=== PATIENT | male | born 1970 | race American Indian/Alaskan Native ===

== ENCOUNTER 2018-04-25 11:48 | Outpatient (CLI) | payer BC ==
[2018-04-25 12:19] LABS: Blood Urea Nitrogen 9 mg/dL (9-20)
--- NOTE | 2018-04-25 13:50 | Cat Scan Report ---
CT CHEST WITH CONTRAST: HISTORY: Abnormal chest x-ray. COMPARISON: none. TECHNIQUE: Helical CT in 1.25mm intervals following IV contrast. Sagittal and coronal reformatted images. FINDINGS: Thyroid gland: Normal. Tracheobronchial tree: Normal. Esophagus: Normal. Heart: Normal. Pericardium: Normal. Mediastinum: Calcified right hilar lymph nodes are noted. No lymphadenopathy. Lung Gustafson: No underlying parenchymal lung disease. 5 mm calcified granuloma in the right upper lobe is noted. No evidence for pneumonia or interstitial lung disease. Pleural Spaces: Normal. Musculoskeletal: Normal. IMPRESSION: Essentially unremarkable CT chest with contrast. Chronic granulomatous disease findings are noted. No acute processes identified in the chest.
== END 2018-04-25 11:49 | disposition home or self-care (01) ==
LOC: CT 11:48
PROVIDERS: ATTEND Family Medicine
DX: L92.9 Granulomatous disorder of the skin and subcutaneous tissue, unspecified (principal)
CPT/HCPCS: 36415; 71260; 82565; 84520; Q9967

== ENCOUNTER 2018-11-28 16:04 | Outpatient (CLI) | payer BC ==
--- NOTE | 2018-11-28 19:58 | Magnetic Resonance Report ---
PROCEDURE: MR LE JOINT LT WO CON HISTORY: PAIN IN LEFT KNEE FINDINGS: MRI of the left knee was performed using axial fat saturated proton density, coronal T1, co clemencia fat saturated proton density, sagittal proton density, sagittal fat saturated T2 and sagittal T 2*gradient echo images. Images suffer from low [id number] ratio. These images demonstrate in the medial compartment, tear of the central insertion of the posterior ho rn of the medial meniscus. Additionally there appears to be a horizontal tear of the medial meniscal body. The anterior horn appears intact. There is articular cartilage loss consistent with osteoarthri tis. There is considerable bone edema within the medial femoral condyle, consistent with bone contusi on. In the lateral compartment, the anterior and posterior horns of the lateral meniscus appear intact. T he articular cartilage appears intact. The subchondral marrow is within normal limits. In the patellofemoral compartment, the quadriceps and patellar tendons appear intact. The articular c artilage appears intact. There is a knee joint effusion without intra-articular loose body. The anterior cruciate ligament appears intact but there is some increased T2 signal intensity within the ACL consistent with sprain. The, posterior cruciate and lateral collateral ligaments appear intac t. There appears to be a tear at the junction of the medial collateral ligament and the medial patell ar retinaculum. IMPRESSION: Tear of central insertion of posterior horn of medial meniscus Horizontal tear of medial meniscal body Bone contusion of medial femoral condyle Sprain of ACL Tear of junction of MCL and medial patellar retinaculum This document is electronically signed by Silverio Rajan MD., Nov 28 2018 07:57:23 PM ET
== END 2018-11-28 16:05 | disposition home or self-care (01) ==
LOC: MRI 16:04
PROVIDERS: ATTEND Orthopaedic Surgery
DX: S83.242A Other tear of medial meniscus, current injury, left knee, initial encounter (principal); I10 Essential (primary) hypertension; X58.XXXA Exposure to other specified factors, initial encounter; Y93.89 Activity, other specified; Y92.89 Other specified places as the place of occurrence of the external cause; Y99.8 Other external cause status
CPT/HCPCS: 73721

== ENCOUNTER 2018-12-20 09:45 | Day surgery (SDC) | payer BC ==
[~2018-12-20 09:45] MED LIST: ANCEF/STERILE WATER 2 GM/20 ML IV NR
[2018-12-20] MEDS ORDERED: VERSED IV NR (11:35)
[2018-12-20] MEDS ORDERED: LACTATED RINGERS 1,000 ML IV SCH (11:35)
[2018-12-20] MEDS ORDERED: SUBLIMAZE ONE ×2 (13:02→13:53)
[2018-12-20] MEDS ORDERED: XYLOCAINE CARDIAC IV ONE (13:02)
[2018-12-20] MEDS ORDERED: DIPRIVAN 10 MG/ML IV ONE ×2 (13:03→13:24)
[2018-12-20] MEDS ORDERED: DEPO-Medrol ONE (13:49)
[2018-12-20] MEDS ORDERED: MARCAINE-EPI 0.5%-1:200,000 INFILTRATI ONE (13:49)
[2018-12-20] MEDS ORDERED: ZOFRAN ONE ×2 (14:02→15:27)
[2018-12-20] MEDS ORDERED: MARCAINE-EPI/PF 0.5%-1:200,000 IJ ONE (14:15)
[2018-12-20] MEDS ORDERED: DEPO-Medrol INTRA-ARTI ONE (14:15)
[2018-12-20] MEDS ORDERED: DILAUDID IV PRN (14:19)
--- NOTE | 2018-12-20 14:19 | Anesthesia Day of Surgery ---
Anesthesia Day of Surgery - Day of Surgery Patient Examined: Yes Patient H&P Reviewed: Yes Patient is NPO: Yes
--- NOTE | 2018-12-20 14:19 | Anesthesia Consultation ---
Anesthesia Consult and Med Hx Date of service: 12/20/18 - Airway Anesthetic Teeth Evaluation: Good ROM Head & Neck: Adequate Mental/Hyoid Distance: Adequate Mallampati Class: Class III Intubation Access Assessment: Possibly Difficult - Pulmonary Exam CTA: Yes - Cardiac Exam Cardiac Exam: RRR - Pre-Operative Health Status ASA Pre-Surgery Classification: ASA3 Proposed Anesthetic Plan: General - Pulmonary Hx Smoking: No Hx Respiratory Symptoms: No Hx Sleep Apnea: No (CORA PRE SCREEN HIGH RISK) - Cardiovascular System Hx Hypertension: Yes Hx Heart Attack/AMI: No Hx Percutaneous Transluminal Coronary Angioplasty (PTCA): No Hx Cardia Arrhythmia: No - Central Nervous System CVA: No Hx Psychiatric Problems: No - Gastrointestinal Hx Gastroesophageal Reflux Disease: No - Endocrine Hx Renal Disease: No Hx Liver Disease: No Hx Insulin Dependent Diabetes: No Hx Non-Insulin Dependent Diabetes: No Hx Thyroid Disease: No - Other Systems Hx Obesity: Yes - Additional Comments Anesthesia Medical History Comments: No prior GA. Patient unsure of family anesthetic history.
[2018-12-20] MEDS ORDERED: NEO SYNEPHRINE/NS Syringe(OR USE) IV ONE (14:35)
[2018-12-20] MEDS ORDERED: TORADOL ONE (14:35)
--- NOTE | 2018-12-20 14:37 | Procedure Note ---
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 A timeout procedure was done to identify the patient and the correct operative site. The leg was exsanguinated by inflation of the pneumatic tourniquet to 300 mmHg routine arthroscopic portals were made following introduction of the arthroscope insufflation of the knee joint with saline solution examination revealed these findings patient was noted to have a grade 3 chondromalacia of the distal femoral condyle medially along with some grade 2 changes on the corresponding tibial articular surface the medial meniscus appeared to be intact and using arthroscopic probe there was no obvious tear noted next the arthroscope was placed in the intraconal notch the anterior cruciate ligament was seen and was intact The knee was placed in a figure 4 position the lateral meniscus was seen and probed and appeared to be intact from posterior to anterior with very little in the way of articular pathology following this the arthroscopic shaver was placed in the joint and the medial femoral condyle was debrided back to healthier. Cartilage tissue here was taken to remove as much degenerative cartilage as possible without interfering with the mechanics of the knee joint following a debridement and irrigation a second look was performed next the arthroscope was removed and the stab wounds were repaired. Marcaine and Depo- Medrol mixture was then injected to postop drops were applied the patient tolerated the procedure of removal, palpitations he was sent to postanesthesia recovery in stable condition Anesthesia: MAC Surgeon: LUIS CARLOS VELEZ Requirements Analyst: JOSHUA MCNAIR Estimated blood loss: minimal Pathology: none Condition: stable Disposition: PACU
[2018-12-20] MEDS ORDERED: PERCOCET 5/325 PO PRN (15:14)
[2018-12-20] MEDS ORDERED: ZOFRAN IV ONE (15:29)
[2018-12-20 16:49] VITALS: BP 110/60
--- NOTE | 2018-12-20 17:22 | Post Anesthesia Evaluation ---
- Post Anesthesia Evaluation Patient Participated: Yes Airway Patent: Yes Stable Respiratory Function: Yes Nausea/Vomiting: No Temp > 96.8F: Yes Pain Manageable: Yes Adequeate Hydration: Yes Anesthesia Complications: No
== END 2018-12-20 16:40 | disposition home or self-care (01) ==
LOC: OR 09:45
PROVIDERS: ATTEND Orthopaedic Surgery
DX: M94.262 Chondromalacia, left knee (principal); M23.92 Unspecified internal derangement of left knee; I10 Essential (primary) hypertension; E66.9 Obesity, unspecified; H40.9 Unspecified glaucoma; G47.30 Sleep apnea, unspecified; Z68.42 Body mass index [BMI] 45.0-49.9, adult; Z79.899 Other long term (current) drug therapy
CPT/HCPCS: 29877; 36415; 84132; J0690; J1040; J1885; J2001; J2250; J2370; J2405; J2704; J3010; J7120; J1030

== ENCOUNTER 2019-09-13 11:00 | Outpatient (CLI) | payer BC | END 2019-09-13 11:01 | disposition home or self-care (01) | LOC: SLR 11:00 | PROVIDERS: ATTEND Otolaryngology | DX: G47.33 Obstructive sleep apnea (adult) (pediatric) (principal); R40.0 Somnolence; E66.9 Obesity, unspecified | CPT/HCPCS: 95810 ==

== ENCOUNTER 2019-09-24 11:00 | Outpatient (CLI) | payer BC | END 2019-09-24 11:01 | disposition home or self-care (01) | LOC: SLR 11:00 | PROVIDERS: ATTEND Otolaryngology | DX: G47.33 Obstructive sleep apnea (adult) (pediatric) (principal); R40.0 Somnolence | CPT/HCPCS: 95811 ==

== ENCOUNTER 2020-04-03 08:05 | Outpatient (CLI) | payer BC ==
[2020-04-03 08:49] LABS: Basophils # (Auto) 0.1 K/mm3 (0.0-0.1); Basophils % (Auto) 0.9 % (0.0-1.8); Eosinophils % (Auto) 0.7 % (0.0-4.3); Hematocrit 41.5 % (35.5-45.6); Hemoglobin 13.4 gm/dl (11.8-15.2); Lymphocytes # (Auto) 2.5 K/mm3 (1.2-5.4); Lymphocytes % (Auto) 43.8 % (13.4-35.0); Mean Corpuscular HGB Conc 32 % (32-34); Mean Corpuscular Volume 77 fl (84-94); Monocytes # (Auto) 0.4 K/mm3 (0.0-0.8); Monocytes % (Auto) 6.6 % (0.0-7.3); Platelet Count 264 K/mm3 (140-440); Red Blood Count 5.37 M/mm3 (3.65-5.03); Red Cell Distribution Width 14.4 % (13.2-15.2)
[2020-04-03 09:16] LABS: Alanine Aminotransferase 22 units/L (7-56); Albumin 4.3 g/dL (3.9-5); BUN/Creatinine Ratio 13; Blood Urea Nitrogen 10 mg/dL (9-20); Calcium 9.7 mg/dL (8.4-10.2); Chol/HDL Ratio 6.05 %; HDL Cholesterol 37 mg/dL (40-59); Hemolysis Index 5; LDL Cholesterol,Direct 147 mg/dL (50-130)
== END 2020-04-03 08:06 | disposition home or self-care (01) ==
LOC: LAB 08:05
PROVIDERS: ATTEND Internal Medicine
DX: Z00.00 Encounter for general adult medical examination without abnormal findings (principal); I10 Essential (primary) hypertension; Z13.1 Encounter for screening for diabetes mellitus; Z13.220 Encounter for screening for lipoid disorders; Z13.21 Encounter for screening for nutritional disorder
CPT/HCPCS: 36415; 80053; 80061; 82306; 82607; 83036; 84443; 85025; 86592; 86689; 87591

== ENCOUNTER 2021-01-06 19:52 | Emergency (ER) | payer BC ==
[2021-01-06 20:38] VITALS: BP 147/73
--- NOTE | 2021-01-06 20:41 | Emergency Department Report ---
ED Recheck HPI - General Chief Complaint: Medical Clearance Stated Complaint: MED REFILL Time Seen by Provider: 01/06/21 20:38 Source: patient Mode of arrival: Ambulatory Limitations: No Limitations - History of Present Illness Initial Comments: 50-year-old male nontoxic, well nourished in appearance, no acute signs of distress presents to the ED with c/o of medication refill. Patient stated he takes Norvasc 5 mg daily. Patient stated last dose was today. Patient otherwise denies any complaints or symptoms. Denies any chest pain, shortness of breath, fever, chills, headache, stiff neck, numbness tingling. Denies any allergies. MD Complaint: medication refill request Returns Today for: request for prescription Symptoms Since Prior Visit: no new symptoms Associated Symptoms: none. denies: fever, chills, chest pain, shortness of breath, rash, malaise, nasuea, abdominal pain - Related Data Home Medications Medication Instructions Recorded Confirmed Last Taken Lisinopril/Hydrochlorothiazide 1 each PO DAILY 12/14/18 12/20/18 12/19/18 [Zestoretic 10-12.5 mg Tablet] Previous Rx's Medication Instructions Recorded Last Taken Type oxyCODONE /ACETAMINOPHEN [Percocet 1 tab PO Q4HR #20 tab 12/20/18 Unknown Rx 5/325] Amlodipine Besylate [Norvasc] 5 mg PO DAILY #30 tablet 01/06/21 Unknown Rx Allergies Allergy/AdvReac Type Severity Reaction Status Date / Time No Known Allergies Allergy Verified 12/14/18 09:53 ED Review of Systems ROS: Stated complaint: MED REFILL Other details as noted in HPI Comment: All other systems reviewed and negative Constitutional: denies: chills, fever Eyes: denies: eye pain, eye discharge, vision change ENT: denies: ear pain, throat pain Respiratory: denies: cough, shortness of breath, wheezing Cardiovascular: denies: chest pain, palpitations Endocrine: no symptoms reported Gastrointestinal: denies: abdominal pain, nausea, diarrhea Genitourinary: denies: urgency, dysuria Musculoskeletal: denies: back pain, joint swelling, arthralgia Skin: denies: rash, lesions Neurological: denies: headache, weakness, paresthesias Psychiatric: denies: anxiety, depression Hematological/Lymphatic: denies: easy bleeding, easy bruising ED Past Medical Hx - Past Medical History Previous Medical History?: Yes Hx Hypertension: Yes Hx Heart Attack/AMI: No Hx Liver Disease: No Hx Renal Disease: No Hx Tuberculosis: Yes (POSITIVE SKIN TEST,TOOK [place] , NEG CXR 2008) Hx HIV: No - Surgical History Past Surgical History?: No - Social History Smoking Status: Never Smoker - Medications Home Medications: Home Medications Medication Instructions Recorded Confirmed Last Taken Type Lisinopril/Hydrochlorothiazide 1 each PO DAILY 12/14/18 12/20/18 12/19/18 History [Zestoretic 10-12.5 mg Tablet] oxyCODONE /ACETAMINOPHEN [Percocet 1 tab PO Q4HR #20 tab 12/20/18 Unknown Rx 5/325] Amlodipine Besylate [Norvasc] 5 mg PO DAILY #30 tablet 01/06/21 Unknown Rx ED Physical Exam - General Limitations: No Limitations General appearance: alert, in no apparent distress - Head Head exam: Present: atraumatic, normocephalic - Eye Eye exam: Present: normal appearance - Neck Neck exam: Present: normal inspection, full ROM. Absent: lymphadenopathy - Respiratory Respiratory exam: Absent: respiratory distress - Cardiovascular Cardiovascular Exam: Present: regular rate - Extremities Exam Extremities exam: Present: full ROM - Back Exam Back exam: Present: full ROM - Neurological Exam Neurological exam: Present: alert, oriented X3, normal gait - Psychiatric Psychiatric exam: Present: normal affect, normal mood - Skin Skin exam: Present: warm, dry, intact, normal color. Absent: rash ED Course Vital Signs 01/06/21 20:36 Temperature 98.7 F Pulse Rate 89 Respiratory 16 Rate Blood Pressure 147/73 O2 Sat by Pulse 98 Oximetry - Reevaluation(s) Reevaluation #1: 01/06/21 20:39 Patient is speaking in full sentences with no signs of distress noted. ED Recheck MDM - Medical Decision Making Patient presents with medication refill. Patient is stable and was examined by me. Patient does have empty bottle of amlodipine 5 mg daily which he takes daily. Patient sees Dr. Nuñez which was not able to follow-up with him due to no availabilities. Patient otherwise denies any symptoms or complaints. Patient was instructed to follow-up with a primary care doctor in 3-5 days or if symptoms worsen and continue return to emergency room as soon as possible. At time of discharge, the patient does not seem toxic or ill in appearance. No acute signs of distress noted. Patient agrees to discharge treatment plan of care. No further questions noted by the patient. Critical care attestation.: If time is entered above; I have spent that time in minutes in the direct care of this critically ill patient, excluding procedure time. ED Disposition Clinical Impression: Medication refill Disposition: DC- TO HOME OR SELFCARE Is pt being admited?: No Does the pt Need Aspirin: No Condition: Stable Additional Instructions: Follow-up with a primary care doctor in 3-5 days or if symptoms worsen and continue return to emergency room as soon as possible. Prescriptions: Amlodipine Besylate [Norvasc] 5 mg PO DAILY #30 tablet Referrals: PRIMARY MD KAM [Referring] - 3-5 Days JESSE NUÑEZ MD [Staff Physician] - 3-5 Days Time of Disposition: 20:41
== END 2021-01-06 20:54 | disposition home or self-care (01) ==
LOC: ED 19:52
DX: I10 Essential (primary) hypertension (principal); Z76.0 Encounter for issue of repeat prescription; Z79.899 Other long term (current) drug therapy
CPT/HCPCS: 99281

== ENCOUNTER 2021-05-18 13:20 | Outpatient (CLI) | payer BC ==
--- NOTE | 2021-05-18 15:02 | XRay Report ---
LEFT KNEE 2 VIEWS INDICATION: PAIN IN LEFT KNEE. COMPARISON: None. IMPRESSION: No acute osseous or soft tissue abnormality. There is moderate medial compartment sonja nt space narrowing. Mild tibial spine and retropatellar spurring is identified. No joint effusion is appreciated. Signer Name: Sean Pollock Jr, MD Signed: 05/18/2021 2:57 PM Workstation Name: [id number]
== END 2021-05-18 13:21 | disposition home or self-care (01) ==
LOC: XRAY 13:20
PROVIDERS: ATTEND Orthopaedic Surgery
DX: M17.12 Unilateral primary osteoarthritis, left knee (principal)

== ENCOUNTER 2021-11-02 00:20 | Emergency (ER) | payer BC ==
--- NOTE | 2021-11-02 02:05 | Emergency Department Report ---
ED Extremity Problem HPI - General Chief complaint: Extremity Injury, Lower Stated complaint: RT LEG PAIN Source: patient Mode of arrival: Ambulatory Limitations: No Limitations - History of Present Illness Initial comments: Patient is a 51-year-old -[place] male with a history of hypertension who presents to the ED with complaint of acute onset persistent nontraumatic posterior right lower leg pain for the last 3 weeks. Patient states that the pain is worse with movement and improves with rest. Patient denies chest pain, shortness of breath, fever, chills, traumatic injury, heavy lifting, nausea and vomiting, low back pain or hip pain, numbness and tingling or weakness of lower extremities bilaterally. MD Complaint: extremity pain (right calf pain) -: Sudden, week(s) (3) Location: right, lower extremity (right calf) History of Same: No -: Yes arthralgia Radiation: distal Severity scale (0 -10): 8 Quality: aching, sharp Consistency: constant Improves with: nothing Worsens with: weight bearing, walking, palpation Associated Symptoms: denies other symptoms - Related Data Home Medications Medication Instructions Recorded Confirmed Last Taken Lisinopril/Hydrochlorothiazide 1 each PO DAILY 12/14/18 12/20/18 12/19/18 [Zestoretic 10-12.5 mg Tablet] Previous Rx's Medication Instructions Recorded Last Taken Type oxyCODONE /ACETAMINOPHEN [Percocet 1 tab PO Q4HR #20 tab 12/20/18 Unknown Rx 5/325] Amlodipine Besylate [Norvasc] 5 mg PO DAILY #30 tablet 01/06/21 Unknown Rx Naproxen 500 mg PO Q12H PRN #30 tab 11/02/21 Unknown Rx Allergies Allergy/AdvReac Type Severity Reaction Status Date / Time No Known Allergies Allergy Verified 12/14/18 09:53 ED Review of Systems ROS: Stated complaint: RT LEG PAIN Other details as noted in HPI Constitutional: denies: chills, fever Eyes: denies: eye pain, eye discharge, vision change ENT: denies: ear pain, throat pain Respiratory: denies: cough, shortness of breath, wheezing Cardiovascular: denies: chest pain, palpitations Endocrine: no symptoms reported Gastrointestinal: denies: abdominal pain, nausea, vomiting, diarrhea Genitourinary: denies: urgency, dysuria Musculoskeletal: arthralgia (posterior right lower leg pain). denies: back pain, joint swelling Skin: denies: rash, lesions Neurological: denies: headache, weakness, paresthesias Psychiatric: denies: anxiety, depression Hematological/Lymphatic: denies: easy bleeding, easy bruising ED Past Medical Hx - Past Medical History Hx Hypertension: Yes Hx Heart Attack/AMI: No Hx Liver Disease: No Hx Renal Disease: No Hx Tuberculosis: Yes (POSITIVE SKIN TEST,TOOK [place] , NEG CXR 2008) Hx HIV: No - Social History Smoking Status: Never Smoker - Medications Home Medications: Home Medications Medication Instructions Recorded Confirmed Last Taken Type Lisinopril/Hydrochlorothiazide 1 each PO DAILY 12/14/18 12/20/18 12/19/18 History [Zestoretic 10-12.5 mg Tablet] oxyCODONE /ACETAMINOPHEN [Percocet 1 tab PO Q4HR #20 tab 12/20/18 Unknown Rx 5/325] Amlodipine Besylate [Norvasc] 5 mg PO DAILY #30 tablet 01/06/21 Unknown Rx Naproxen 500 mg PO Q12H PRN #30 tab 11/02/21 Unknown Rx ED Physical Exam - General Limitations: No Limitations General appearance: alert, in no apparent distress - Head Head exam: Present: atraumatic, normocephalic, normal inspection - Eye Eye exam: Present: normal appearance, PERRL, EOMI Pupils: Present: normal accommodation - ENT ENT exam: Present: normal exam, normal orophraynx, mucous membranes moist, TM's normal bilaterally, normal external ear exam - Neck Neck exam: Present: normal inspection, full ROM. Absent: tenderness - Respiratory Respiratory exam: Present: normal lung sounds bilaterally. Absent: respiratory distress, wheezes, chest wall tenderness, accessory muscle use, decreased breath sounds - Cardiovascular Cardiovascular Exam: Present: regular rate, normal rhythm, normal heart sounds. Absent: systolic murmur, diastolic murmur, rubs, gallop - GI/Abdominal GI/Abdominal exam: Present: soft, normal bowel sounds. Absent: distended, tenderness, guarding, hyperactive bowel sounds, hypoactive bowel sounds, organomegaly, mass - Extremities Exam Extremities exam: Present: normal inspection, full ROM, tenderness (Palpable posterior right calf tenderness), normal capillary refill. Absent: pedal edema, joint swelling, calf tenderness - Back Exam Back exam: Present: normal inspection, full ROM. Absent: tenderness, CVA tenderness (R), CVA tenderness (L), muscle spasm, paraspinal tenderness, vertebral tenderness - Neurological Exam Neurological exam: Present: alert, oriented X3, CN II-XII intact, normal gait, reflexes normal - Psychiatric Psychiatric exam: Present: normal affect, normal mood - Skin Skin exam: Present: warm, dry, intact, normal color. Absent: rash ED Course Vital Signs 11/02/21 00:27 Temperature 98.3 F Pulse Rate 83 Respiratory 16 Rate Blood Pressure 136/92 O2 Sat by Pulse 95 Oximetry ED Medical Decision Making - Medical Decision Making This is a 51-year-old -[place] male with a history of hypertension who presents to the ED with complaint of acute onset persistent nontraumatic posterior right lower leg pain for the last 3 weeks. Patient states that the pain is worse with movement and improves with rest. In the ED, patient is alert and oriented x3 and is not in any distress. Doppler right lower extremity ultrasound revealed no sonographic evidence of DVT. Patient symptoms are likely musculoskeletal, and was therefore discharged home on medications for pain and advised to follow-up with his primary care physician in 7 to 10 days for reevaluation or return to the ED immediately if symptoms get worse. - Differential Diagnosis DVT; muscle strain; muscle spasm; Critical care attestation.: If time is entered above; I have spent that time in minutes in the direct care of this critically ill patient, excluding procedure time. ED Disposition Clinical Impression: Strain of muscle of posterior right lower leg, Muscle spasm of right lower extremity Disposition: HOME / SELF CARE / HOMELESS Is pt being admited?: No Does the pt Need Aspirin: No Condition: Stable Instructions: Muscle Cramps and Spasms, [id number], Muscle Strain, [id number] Additional Instructions: The Doppler ultrasound of right lower leg showed no evidence of DVT. Take medication with food, drink plenty of fluids and follow-up with the primary care physician in 7 to 10 days for reevaluation. Return to the ED immediately if symptoms get worse. Prescriptions: Naproxen 500 mg PO Q12H PRN #30 tab PRN Reason: Pain , Severe (7-10) Referrals: JESSE VASQUEZ MD [Staff Physician] - 7-10 days Forms: Work/School Release Form(ED) Time of Disposition: 02:03 Print Language: MOSOTHO
[2021-11-02 02:37] VITALS: BP 134/86
--- NOTE | 2021-11-02 03:37 | Vascular Lab Report ---
DUPLEX DOPPLER LOWER EXTREMITY VEINS, RIGHT INDICATION / CLINICAL INFORMATION: right lower leg pain. TECHNIQUE: Duplex doppler imaging was performed through the veins of the right lower extremity using venous compression and other maneuvers. COMPARISON: None available. FINDINGS: RIGHT COMMON FEMORAL VEIN: Negative. RIGHT FEMORAL VEIN: Negative. RIGHT POPLITEAL VEIN: Negative. RIGHT CALF VEINS: Negative. ADDITIONAL FINDINGS: None. IMPRESSION: 1. No sonographic evidence for DVT in the right lower extremity. Signer Name: Daryl King II, MD Signed: 11/02/2021 3:33 AM Workstation Name: [id number]
== END 2021-11-02 02:23 | disposition home or self-care (01) ==
LOC: ED 00:20
DX: S86.811A Strain of other muscle(s) and tendon(s) at lower leg level, right leg, initial encounter (principal); X58.XXXA Exposure to other specified factors, initial encounter; Y93.89 Activity, other specified; Y92.89 Other specified places as the place of occurrence of the external cause; Y99.8 Other external cause status
CPT/HCPCS: 99283

== ENCOUNTER 2021-11-09 09:45 | Outpatient (CLI) | payer BC ==
[2021-11-09 10:14] LABS: Basophils # (Auto) 0.1 K/mm3 (0.0-0.1); Basophils % (Auto) 1.1 % (0.0-1.8); Eosinophils # (Auto) 0.1 K/mm3 (0.0-0.4); Eosinophils % (Auto) 2.1 % (0.0-4.3); Hematocrit 43.8 % (35.5-45.6); Hemoglobin 14.1 gm/dl (11.8-15.2); Lymphocytes # (Auto) 2.5 K/mm3 (1.2-5.4); Lymphocytes % (Auto) 38.9 % (13.4-35.0); Mean Corpuscular HGB Conc 32 % (32-34); Mean Corpuscular Volume 78 fl (84-94); Monocytes # (Auto) 0.4 K/mm3 (0.0-0.8); Monocytes % (Auto) 6.8 % (0.0-7.3); Platelet Count 304 K/mm3 (140-440); Red Blood Count 5.65 M/mm3 (3.65-5.03); Red Cell Distribution Width 14.3 % (13.2-15.2)
[2021-11-09 10:57] LABS: Alanine Aminotransferase 23 units/L (7-56); Albumin 4.8 g/dL (3.9-5); BUN/Creatinine Ratio 12; Blood Urea Nitrogen 11 mg/dL (9-20); HDL Cholesterol 29 mg/dL (40-59); Hemolysis Index 13; LDL Cholesterol,Direct TNR mg/dL (50-130)
[2021-11-12 13:22] LABS: Vitamin D, 25-OH, D2 <4 ng/mL
== END 2021-11-09 09:46 | disposition home or self-care (01) ==
LOC: LABHHL 09:45
PROVIDERS: ATTEND Internal Medicine
DX: Z00.00 Encounter for general adult medical examination without abnormal findings (principal); E11.9 Type 2 diabetes mellitus without complications; E78.5 Hyperlipidemia, unspecified; I10 Essential (primary) hypertension; E55.9 Vitamin D deficiency, unspecified; R53.83 Other fatigue
CPT/HCPCS: 36415; 80053; 80061; 82306; 83036; 84443; 85025